=== PATIENT | female | born 1960 | race Caucasian/White ===

== ENCOUNTER → 2023-02-24 13:49 | Outpatient (BNVA) | payer OTHER, SELFPAY | PROVIDERS: PCP Internal Medicine; Visit Provider Dietitian, Registered | DX: E66.3 Overweight (principal); Z68.28 Body mass index [BMI] 28.0-28.9, adult | CPT/HCPCS: 97802 ==

== ENCOUNTER 2025-03-14 13:44 | Outpatient (AMB) | payer OTHER, SELFPAY ==
[2025-03-14 14:12] VITALS: BMI 29.5
--- NOTE | 2025-03-14 14:12 | A.OFFVIS_ITS ---
VS Expanded 03/14/25 14:12 Height 5 ft 2 in Weight 161 lb 2.526 oz BMI 29.5 Intake Visit Reasons: Overweight, high cholesterol Nutrition Presentation Details: Pt presents for MNT f/u for overweight Pt follows lacto ovo vegetarian diet > 10 years Pt reports lacking meal routine, often may have late evening meals and late snacks physical activity: none additional to daily life activities Food frequency fruits: 2-3/d vegetables: 6 serving/d dairy: 4-5 serving/d starches >20 /d protein:eggs/tofu/beans/tempeh/nuts/seeds a variety daily counting calories= in the past counting carbs/prot- in the past beverages: water, low sugar beverages 24 oz/day GWE-Sozrxqa-Je.Jeor Equation Height: 5 ft 2 in Weight: 161 lb Resting Metabolic Rate: 1242.84 Calculated Activity Level: Sedentary Calories Needed to Maintain Weight: 1491.41 Diagnosis Nutrition problem #1: overweight/obesity As related to (etiology) #1: diagnosis As evidenced by (sign/symptom) #1: est intake more than need Assessment & Plan Assessment & Plan (1) Overweight (BMI 25.0-29.9): Code(s): E66.3 - Overweight Category: Medical Plan: wt today03/2025 at 161 lbs (73 kg ) Est kcal needs as per MSJ: 1470 (40% carb, 30% protein/fat) Est fluid needs as per 25-30 ml/d: 8614-2689 Est prot per day as per 1 g/kg bw: 70 kg Recommend fiber intake : 8-10 g per day and gradually increase to 25-28 g per day for women or as tolerated Recommend sodium intake per day : less than 2300 mg Educated patient on: ( R = reviewed V = verbalizes understanding N/R = needs review N/A = not applicable * Food sources of carbohydrate, adequate serving sizes and its role in various health conditions: R * Differences between complex carbohydrates a simple carbohydrates, role of fib er in diet: R * Differentiating hunger vs appetite , mindful eating strategies: R * Differences between types of fats and role in diet (mono on saturated fat fatty acids, saturated fatty acids, trans fats): NR * Food sources of sodium in salt and healthy modifications for heart health in kidney health: NR * Vitamins and minerals: R * Healthy plate method concept: R V * Physical activity: Benefits a precaution: R * Patient Instructions: Resume having a 3 scheduled meals per day Reduce on added sugar , /dorado/butters, hidden fats keep a food journal Coding Level of Care Code Nutr Indiv Subseq (24265) Diagnoses Overweight (BMI 25.0-29.9) E66.3 Time Spent (min) 30
--- OUTSIDE RECORDS SUMMARY | 2025-03-14 15:34 | XMS_ITS | Data Portability ---
Author Organization [facility] Address [address] [place] [address] Care Team Providers Care Face Man Name Role Phone DANGELO, ANDREINA Primary Care Provider Unavailabl e DANGELO, ANDREINA Referring Provider Unavailable Assessment No assessment recorded. Plan of Treatment Reminders Order Date Submit Date Provider Last Modified By Organization Details Last Modified Time Details Appointments None recorded. Lab None recorded. Referral None recorded. Procedures pulse oximetry (PROC) 2017 018 enottleso n1 [facility], [address] [place] [address] [place], [phone], 21:57:18 Surgeries None recorded. Imaging None recorded. Medication Orders None recorded. Patient TargetsNo targets recorded. Patient InstructionsNo instructions recorded. Reason for Referral None Reported. Results Created Date Observation Date Name Description Value Unit Range Abnormal Flag Note LastModifiedBy Organization Detail LastModifiedTime 02/10/20 18 02/09/2018 pulse oxime try (PROC ) Unknown Analyte 97 Not Available [address] [place], [phone], 02/09/2018 21:57:06 02/10/20 18 02/09/2018 pulse oxime try (PROC ) Unknown Analyte room air Not Available [address] [place], [address], 02/09/2018 21:57:06 Result Notes None recorded. Problems Name Problem SNOMED Code Status Onset Date Resolution Date Notes Provider Name and Address Organization Details Recorded Time Hypothyroidism 33977868 Active 2017 Mariah Wilkerson MD [address] [place] [address], [phone] , [facility] 8 19:40:00 Problem Notes None recorded. Medical Equipment None Reported. Allergies No known drug allergies Medications Name Sig Start Date Stop Date Status Note LastModified by Organization Details LastModified Time levothyroxine 88 mcg tablet active Not Available Not Available N ot Available lorazepam 0.5 mg tablet 02/09 completed Not Available Not Available Not Available diclofenac sodium 50 mg tablet,delayed release 02/09 completed Not Available Not Available Not Available amoxicillin 875 mg-potassium clavulanate 125 mg tablet 02/09 completed Not Available Not Available Not Available cyclobenzaprine 5 mg tablet 02/09 completed Not Available Not Available Not Available Vitals Date Recorded Body weight Heart rate Oxygen saturation Oxygen saturation in Arterial blood by Pulse oximetry Body temperature Systolic blood pressure Diastolic blood pressure Provider Name and Address Organization Details Last Updated DateTime 8 38713.1 2 g 93 /min 97 % 97 % 98.9 [degF] 118 mm[Hg] 80 mm[Hg] Gladys Pistorino [facility] 8 19:34:40 Social History Question Answer Notes LastModified by Organizat ion Details LastModified Time Tobacco Smoking Status Never Smoker Mariah Wilkerson MD [address] [place] [address], [phone], [facility] 02/09/2018 19:42:06 What Was The Date Of Your Most Recent Tobacco Screening? 02/09/2018 Information n ot available 04/27/2019 Sex: Unknown Functional Status None recorded. Mental Status None recorded. Family History Nothing Reported. Medical History No medical history recorded. Gynecological HistoryNo gynecological history recorded. Obstetrics History GPAL:G 0 P 0 0 0 0 Past Encounters Encounter ID Performer Location Encounter Start Date Encounter Closed Date Diagnosis/Indication Diagnosis SNOMED-CT Code Diagnosis ICD10 Code Diagnosis Note [id number] [facility] [address] [place] [address] 02/09/2018 19:18:05 02/09/2018 19:50:55 Acute upper respiratory infection 37306443 J06.9 Discussed normal course of viral illness and why antibiotic s are generally not indicated. Reviewed over-the-c ounter medication s for symptom control (including guaifenesi n, pseudoephe drine, etc.). Contact precaution s. Call if symptoms worsen or fail to improve. Advised patient to get plenty of rest and push fluids. Health Concerns Section Related Observation LastModified by Organization Detai ls LastModified Time None Recorded Concern Status LastModified by Organization Details LastModified Time None Recorded Advance Directives Directive None Recorded Payers Insurance Date Sequence Insurance Name Policy Number Policy Chi Covered Member ID Chi Member ID Guarantor Name 02/09/2018 1 [facility] Thuy Stein [id number] Thuy Stein Notes Date Note Type Note Provider Name and Address Organization Details Recorded Time 02/09/2018 text/html Pt presents in [facility] today with mother, Marija Martino , c/o achy, stuffy head, cough, this has been going on since at least Wednesday/Wednesday. The achy feeling all over has been getting worse. Pt stopped taking lorazapam, amoxycillin, cyclobenzapine, diclofenac sodium., pt is currently only taking levothyroxine, 88mg. Pt is worried about her mother getting this cold. -AP She has had a cold on and off thought it was done last week but seems to be getting worse again getting PND a sore throat sneezing and a cough slightly productive. Drinking a ton of water and now feeling achy all over and her head is stuff. Mariah Wilkerson MD [address] [place] [address], [phone], [facility] 02/09/2018 21:57:22 OBGyn Episode No OBEpisode recorded.
[2025-03-27 08:47] VITALS: BMI 29.4
== END 2025-03-14 15:09 | disposition home or self-care (01) ==
LOC: HO.ENCR 13:45
PROVIDERS: PCP Internal Medicine; Visit Provider Dietitian, Registered
DX: E66.3 Overweight (principal)

== ENCOUNTER → 2025-03-14 13:44 | Outpatient (BNVA) | payer OTHER, SELFPAY | PROVIDERS: PCP Internal Medicine; Visit Provider Dietitian, Registered | DX: E66.3 Overweight (principal) | CPT/HCPCS: 97803 ==

== ENCOUNTER 2025-05-09 13:28 | Outpatient (AMB) | payer OTHER, SELFPAY ==
--- NOTE | 2025-05-09 13:33 | A.OFFVIS_ITS ---
VS Expanded 05/09/25 13:34 Height 5 ft 2 in Weight 161 lb 6.054 oz BMI 29.5 Intake Visit Reasons: obesity Nutrition Presentation Details: Pt presents MNT f/u for obesity Pt reports doing well, working on meal routine Assessment & Plan Assessment & Plan (1) Overweight (BMI 25.0-29.9): Code(s): E66.3 - Overweight Category: Medical Plan: wt today03/2025 at 161 lbs (73 kg ), (05/28) Est kcal needs as per MSJ: 1470 (40% carb, 30% protein/fat) Est fluid needs as per 25-30 ml/d: 5114-8753 Est prot per day as per 1 g/kg bw: 70 kg Recommend fiber intake : 8-10 g per day and gradually increase to 25-28 g per day for women or as tolerated Recommend sodium intake per day : less than 2300 mg Educated patient on: ( R = reviewed V = verbalizes understanding N/R = needs review N/A = not applicable * Food sources of carbohydrate, adequate serving sizes and its role in various health conditions: R * Differences between complex carbohydrates a simple carbohydrates, role of fiber in diet: R * Differentiating hunger vs appetite , mindful eating strategies: R * Differences between types of fats and role in diet (mono on saturated fat fatty acids, saturated fatty acids, trans fats): NR * Food sources of sodium in salt and healthy modifications for heart health in kidney health: NR * Vitamins and minerals: R * Healthy plate method concept: R V * Physical activity: Benefits a precaution: R * Patient Instructions: Continue working on meal routine , work on gradually reducing total carb to less than 45 g per meal, including lean protein - incorporate physical activity 30-40 minutes 3 times/wk - choose enjoyable activities Coding Level of Care Code Nutr Indiv Subseq (08305) Diagnoses Overweight (BMI 25.0-29.9) E66.3 Time Spent (min) 30
[2025-05-09 13:34] VITALS: BMI 29.5
--- OUTSIDE RECORDS SUMMARY | 2025-05-09 13:59 | XMS_ITS | Clinical Summary ---
Author Organization LL [address] [place] [address] [place] [phone] Phone Care Team Providers Care Wine Consultant Name Role Phone Jaz Corona MD Primary Care Provider Allergies Active Allergy Reactions Criticality Noted Date Comments Itraconazole 08/26/2005 Medications acetaminophen (TYLENOL) 500 mg tablet Take 1 tablet (500 mg total) by mouth every 6 (six) hours if needed for mild pain. 2 Active alendronate (FOSAMAX) 70 mg tablet Take 1 tablet (70 mg total) by mouth every 7 (seven) days. for 360 days 1 Active fluticasone propionate (FLONASE) 50 mcg/actuation nasal spray Administer 2 sprays into affected nostril(s) 1 (one) time each day. 3 Active ibuprofen 200 mg capsule Take 2 tablets by mouth every 4 (four) hours if needed. Active triamcinolone (KENALOG) 0.1 % cream Apply topically 2 (two) times a day. for up to two weeks Apply thin layer to affected area 0 Active cholecalcifero l (VITAMIN D-3) 25 mcg (1,000 unit) capsule Take 1 capsule (1,000 Units total) by mouth 1 (one) time each day. 90 capsule 3 5 Active levothyroxine (SYNTHROID, LEVOTHROID) 88 mcg tablet Take 1 tablet (88 mcg total) by mouth 1 (one) time each day. 90 tablet 5 Active levothyroxine (SYNTHROID, LEVOTHROID) 88 mcg tablet Take 1 tablet (88 mcg total) by mouth 1 (one) time each day. 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 Cervicalgia 10/09/2005 Encounters Date Type Department Care Team Description 02/19/2025 11:00 AM EDT Office Visit Internal Medicine - [address] [place] [id number] Jaz Corona MD Hypothyroidism due to acquired atrophy of thyroid (Primary Dx); Breast cancer screening by mammogram; Vitamin D deficiency; BMI 32.0-32.9,adult; High cholesterol; Osteoporosis, unspecified osteoporosis type, unspecified pathological fracture presence from Last 3 Months Immunizations Name Administration Dates Next Due Influenza Quadravalent, MDCK , 0.5ml, preservative free (Flucelvax) 6mo and older 08/08/2018 Influenza trivalent, 0.5mL, preservative free (Fluarix; FluLaval; Fluzone) ages 6mo and older (Afluria) 3 years and older 08/14/2015 Td Tetanus diptheria (Tdvax) 7yo and older 05/30 Surgical History Surgery Date Site/Laterality Comments MOLE REMOVAL PROCEDURE: HISTORICAL MOLE (REMOVAL OF) Medical History Medical History Date Comments Cervicalgia 10/09/2005 DX:Cervicalgia Hypothyroidism 04/23/2018 DX:Hypothyroidis m Neoplasm of uncertain behavior of skin 06/14/2006 DX:Neoplasm of uncertain behavior of skin; COMMENT: Abdominal wall x 2 Tubular adenoma of colon 10/26/2017 DX:Tubu lar adenoma of colon Vitamin D deficiency 04/23/2018 DX:Vitamin D deficiency Social History Tobacco Use Types Packs/Day Years Used Date Smoking Tobacco: Never Smokeless Tobacco: Never Tobacco Cessation:Counseling Given: Not Answered Alcohol Use Standard Drinks/Week Comments No 0 (1 standard drink = 0.6 oz pur e alcohol) Comments Unknown Sex and Gender Information Value Date Recorded Sex Assigned at Not on file Legal Sex Female 7:21 PM EST Gender Identity Not on file Sexual Orientation Not on file Obstetrics History Last Filed Vital Signs Vital Sign Reading Time Taken Comments Blood Pressure 112/74 02/19/2025 11:22 AM EDT Pulse 61 02/19/2025 11:22 AM EDT Temperature 36.3 C (97.3 F) 02/19/2025 11:22 AM EDT Respiratory Rate - - Oxygen Saturation 98% 02/19/2025 11:22 AM EDT Inhaled Oxygen Concentration - - Weight 71.7 kg (158 lb) 02/19/2025 11:22 AM EDT Height 157.5 cm (5' 2 ) 08/21/2024 3:05 PM EST Body Mass Index 28.9 08/21/2024 3:05 PM EST Plan of Treatment Upcoming Encounters Date Type Department Care Team (Late st Contact Info) Description 08/27/2025 9:30 AM EST Office Visit Internal Medicine - [place] [address] [facility] [address] [place] [address] Akash Fitzgerald NP [address] [facility] [address] [place] [address] Health Maintenance Due Date Last Done Comments Breast Cancer Screening 1960 Pneumococcal Vaccine: 50+ Years (1 of 1 - PCV) 2011 DTaP,Tdap,and Td Vaccines (2 - Td or Tdap) 05/30/2012 05/30/2002 HIV Screening 09/12/2022 Hepatitis C Screening 09/12/2022 Social Influencers of Health Screening 09/12/2022 Zoster Vaccines (2 of 2) 10/14/2023 08/19/2023 COVID-19 Vaccine ( - season) 2024 10/07/2021, 02/20/2021, 01/29/2021 Depression Screening 10/04/2024 Influenza Vaccine (#1) 2025 , 07/16/2020, 08/08/2018, Additional history exists Colorectal Cancer Screening: FIT-DNA (Cologuard) 01/22/2026 01/22/2023 Cervical Cancer Screening: Pap Smear 08/24/2026 08/24/2023 Cholesterol Screening (Lipid Panel) 08/14/2029 08/14/2024, 01/18/2023 Osteoporosis Screening (Bone Density Screening) 11/27/2030 11/27/2020 RSV Immunization Adult Patients (1 - 1-dose 75+ series) 2036 HIB Vaccines Aged Out No longer eligi ble based on patient's age to complete this topic HPV Vaccines Aged Out No longer eligi ble based on patient's age to complete this topic Hepatitis A Vaccines Aged Out No long er eligible based on patient's age to complete this topic Hepatitis B Vaccines Aged Out No long er eligible based on patient's age to complete this topic IPV Vaccines Aged Out No longer eligi ble based on patient's age to complete this topic MMR Vaccines Aged Out No longer eligi ble based on patient's age to complete this topic Meningococcal ACWY Vaccine Aged Out N o longer eligible based on patient's age to complete this topic Meningococcal B Vaccine Aged Out No l onger eligible based on patient's age to complete this topic RSV Immunization Patients Under 20 months Aged Out No longer eligible based on patient's age to complete this topic Varicella Vaccines Aged Out No longer eligible based on patient's age to complete this topic Procedures Procedure Name Priority Date/Time Associated Diagnosis Comments THYROID STIMULATING HORMONE Routine 02/21/2025 9:16 AM EDT Breast cancer screening by mammogram Vitamin D deficiency BMI 32.0-32.9,adult High cholesterol Hypothyroidism due to acquired atrophy of thyroid LIPID PANEL WITH REFLEX TO DIRECT LDL Routine 08/14/2024 8:22 AM EST Hypothyroidism, unspecified type Routine general medical examination at a health care facility Vitamin D deficiency, unspecified PAP SMEAR Routine 08/24/2023 FIT-DNA Routine 01/22/2023 DXA BONE DENSITY STUDY 1+ SITS AXIAL SKEL Routine 11/27/2020 4:19 PM EST Encounter for general adult medical examination without abnormal findings from Last 3 Months or Most Recently Relevant to Health Maintenance Results * (ABNORMAL) Thyroid stimulating hormone (02/21/2025 9:16 AM EDT) TSH 4.23(H) 0.40 - 4.00 mcIU/mL LAB CHEMISTRY METHOD 02/21/2025 4:08 PM EDT [facility] Blood Venous blood specimen / Unknown Venipuncture / Unknown 02/21/2025 9:16 AM EDT 02/21/2025 9:16 AM EDT us Jaz Corona MD LAB BLOOD ORDERABLES Final Res ult [facility] [address] [place] [address], [place] [phone] * (ABNORMAL) Lipid panel with reflex to direct LDL (08/14/2024 8:22 AM EST) Pathologist [facility] Cholesterol 244(H) 0 - 200 mg/dL LAB CHEMISTRY METHOD 08/14/2024 10:15 AM EST [facility] Triglycerides 128 0 - 150 mg/dL LAB CHEMISTRY METHOD 08/14/2024 10:15 AM EST [facility] HDL 65 >=40 mg/dL LAB CHEMISTRY METHOD 08/14/2024 10:15 AM EST [facility] LDL Calculated 153(H) 0 - 100 mg/dL LAB CHEMISTRY METHOD 08/14/2024 10:15 AM [facility] VLDL Cholesterol [place] 25.6 mg/dL LAB CHEMISTRY METHOD 08/14/2024 10:15 AM EST [facility] Non HDL Chol. (LDL+VLDL) 179(H) <145 mg/dL LAB CHEMISTRY METHOD 08/14/2024 10:15 AM EST [facility] Chol/HDL Ratio 3.8 0.0 - 4.4 LAB CHEMISTRY METHOD 08/14/2024 10:15 AM [facility] Blood Venous blood specimen / Unknown Venipuncture / Unknown 08/14/2024 8:22 AM EST 08/14/2024 8:22 AM EST Jaz Corona MD LAB BLOOD ORDERABLES Final Res ult [facility] [address] [place] [address], * Pap Smear (08/24/2023) Pap smear no interpretation , abstracted Historical Provider HEALTH MAINTENANCE Final Result * FIT-DNA (Cologuard) (01/22/2023) Pathologist [facility] Colorectal Cancer Screening: FIT-DNA (Cologuard) no interpretation , abstracted Historical Provider HEALTH MAINTENANCE Final Result * DXA BONE DENSITY STUDY 1+ SITS AXIAL SKEL (11/27/2020 4:19 PM EST) Anatomical Region Laterality Modality Bone Densitometr y 11/17/2020 9:44 AM EST Narrative 11/28/2020 2:47 PM EST BONE DENSITY Lumbar Spine T-score is -2.7 (SD relative to 20-29 y/o adult) Z-score is -1.3 (SD relative to age matched peers) This is consistent with osteoporosis by criteria defined by the WHO. Left Hip T-score is -1.2 Z-score is +0.1 This is consistent with osteopenia by criteria defined by the WHO. Impression: Based on the World Health Organization criteria, Nicole Stein should be classified as having osteoporosis. [facility] Department of Internal Medicine recommends using National Osteoporosis Foundation (NOF) guidelines in treatment decisions related to osteoporosis. NOF guidelines suggest considering treatment for postmenopausal women and men aged 50 or older presenting with the following: History of hip or vertebral fracture. T-score less than or equal to -2.5 (DXA) at the femoral neck, total hip, or spine, after appropriate evaluation to exclude secondary causes. Low bone mass (T-score between -1.0 and -2.5 at the femoral neck or spine) AND a 10-year probability of a hip fracture greater than or equal to 3% OR a 10-year probability of a major osteoporosis-related fracture greater than or equal to 20% based on the [place]-adapted WHO algorithm Please note that all treatment decisions require clinical judgment and consideration of individual patient factors, including patient preferences, co-morbidities, previous drug use, risk factors not captured in the FRAX model (e.g., frailty, falls, vitamin D deficiency, increased bone turnover, interval significant decline in bone density) and possible under- or over-estimation of fracture risk by FRAX. Procedure Note Felipe Matias MD - 09/22/2022 BONE DENSITY Lumbar Spine T-score is -2.7 (SD relative to 20-29 y/o adult) Z-score is -1.3 (SD relative to age matched peers) This is consistent with osteoporosis by criteria defined by the WHO. Left Hip T-score is -1.2 Z-score is +0.1 This is consistent with osteopenia by criteria defined by the WHO. Impression: Based on the World Health Organization criteria, Nicole Stein should beclassified as having osteoporosis. [facility] Department of Internal Medicine recommendsusing National Osteoporosis Foundation (NOF) guidelines in treatmentdecisions related to osteoporosis. NOF guidelines suggest consideringtreatment for postmenopausal women and men aged 50 or older presentingwith the following: History of hip or vertebral fracture. T-score less than or equal to -2.5 (DXA) at the femoral neck, total hip,or spine, after appropriate evaluation to exclude secondary causes. Low bone mass (T-score between -1.0 and -2.5 at the femoral neck or spine)AND a 10-year probability of a hip fracture greater than or equal to 3% ORa 10-year probability of a major osteoporosis-related fracture greaterthan or equal to 20% based on the [place]-adapted WHO algorithm Please note that all treatment decisions require clinical judgment andconsideration of individual patient factors, including patientpreferences, co-morbidities, previous drug use, risk factors not capturedin the FRAX model (e.g., frailty, falls, vitamin D deficiency, increasedbone turnover, interval significant decline in bone density) and possibleunder- or over-estimation of fracture risk by FRAX. Jaz Corona MD IMG DXA PROCEDURES Final Resul t from Last 3 Months or Most Recently Relevant to Health Maintenance Insurance [facility] [employer] PLANS Care Teams Wine Consultant Relationship Specialty Start Date End Date Jaz Corona MD [address] [place] [phone] PCP - General Internal Medicine 05/25/17
== END 2025-05-09 14:19 | disposition home or self-care (01) ==
LOC: HO.ENCR 13:29
PROVIDERS: PCP Internal Medicine; Visit Provider Dietitian, Registered
DX: E66.3 Overweight (principal)

== ENCOUNTER → 2025-05-09 13:28 | Outpatient (BNVA) | payer OTHER, SELFPAY | PROVIDERS: PCP Internal Medicine; Visit Provider Dietitian, Registered | DX: E66.3 Overweight (principal); Z68.29 Body mass index [BMI] 29.0-29.9, adult; Z71.3 Dietary counseling and surveillance | CPT/HCPCS: 97803 ==